=== PATIENT | male | born 1990 | race Asian ===

== ENCOUNTER 2021-01-22 10:41 | Emergency (ER) | payer OTHER ==
[~2021-01-22] VITALS: Ht 177.8 cm; Wt 74.8 kg
[2021-01-22] MEDS ORDERED: ONDANSETRON 2MG/ML, 2ML IVPush ONE (11:30)
[2021-01-22] MEDS ORDERED: SODIUM CHLORIDE FLUSH 10ML SYR IVF ONE (11:30)
[2021-01-22] MEDS ORDERED: SODIUM CHLORIDE 0.9% 1,000ML IVBOLUS ONE (11:30)
[2021-01-22] MEDS ORDERED: FAMOTIDINE 20 MG/2 ML IVPush ONE (11:30)
[2021-01-22] MEDS ORDERED: MAALOX/HYOSCYAMINE/LIDOCAINE 45 ML BTL PO ONE (11:30)
[2021-01-22] MEDS ORDERED: MAALOX/HYOSCYAMINE/LIDOCAINE 45 ML BTL ONE (11:46)
[2021-01-22] MEDS ORDERED: ONDANSETRON 2MG/ML, 2ML ONE (11:46)
[2021-01-22] MEDS ORDERED: FAMOTIDINE 20 MG/2 ML ONE (11:46)
[2021-01-22 11:47] LABS: MEAN CORPUSCULAR HEMOGLOBIN 31.3 pg (27.5-34.5); MEAN CORPUSCULAR HGB CONC 34.1 g/dL (33.2-36.2); MEAN PLATELET VOLUME 8.8 fL (7.4-10.4); PLATELET COUNT 352 x10^3/uL (130-400); RED CELL DISTRIBUTION WIDTH 12.1 % (9.4-14.8)
[2021-01-22 11:54] LABS: ALBUMIN 4.5 g/dL (3.4-5.0); ANION GAP 8 mmol/L (5-15); CHLORIDE 108 mmol/L (98-107)
--- NOTE | 2021-01-22 12:07 | NUR ---
Pt states he began throwing up today. Reports 6-7 times [employer]. 150cc bile noted in emisis bag upon first encounter. Pt c/o epigastric pain and denies any other symptoms. Connected to all monitors, cardiac included due to shruthi rate in 40s. BP stable. Med student to bedside for eval.
[2021-01-22 12:11] LABS: MD YES
[2021-01-22 12:12] LABS: BAND#(MANUAL) 1.74 x10^3/uL; BANDS%(MANUAL) 11 % (0-7); LYMPH#(MANUAL) 0.95 x10^3/uL (1-3.4); LYMPHS% (MANUAL) 6 % (22-44); MONOS#(MANUAL) 0.63 x10^3/uL (0.3-2.7); MONOS% (MANUAL) 4 % (2-9); SEG#(MANUAL) 12.48 x10^3/uL (1.8-6.8); SEGS% (MANUAL) 79 % (42-75)
[2021-01-22 12:13] LABS: <PLATELET ESTIMATE> ADEQUATE; <PLT MORPHOLOGY> NORMAL PLT MORPH; <RBC MORPHOLOGY> NORMAL; ALANINE AMINOTRANSFERASE 78 U/L (12-78); ALKALINE PHOSPHATASE 99 U/L (45-117); BILIRUBIN,TOTAL 0.6 mg/dL (0.2-1.0); CREATININE 1.16 mg/dL (0.7-1.3); TOTAL PROTEIN 8.1 g/dL (6.4-8.2)
[2021-01-22 13:24] VITALS: BP 130/60
== END 2021-01-22 13:31 | disposition home or self-care (01) ==
LOC: ED 13:15
DX: K29.00 Acute gastritis without bleeding (principal); E86.0 Dehydration; R00.1 Bradycardia, unspecified; R10.13 Epigastric pain; R11.2 Nausea with vomiting, unspecified
CPT/HCPCS: 36415; 80053; 83690; 83735; 85025; 93005; 96361; 96374; 96375; 99284; J2405; J7030